=== PATIENT | female | born 1995 | race Caucasian/White ===

== ENCOUNTER 2018-09-24 17:57 | Emergency (ER) | payer MEDICAID ==
[~2018-09-24] VITALS: Ht 162.6 cm; Wt 82.6 kg
[2018-09-24 18:08] VITALS: Ht 162.6 cm; Wt 82.6 kg
[2018-09-24 20:16] LABS: BASOPHIL % 0 % (0-2); PLATELET COUNT 288 x10^3mcL (130-400); RED CELL DISTRIBUTION WIDTH 12.6 % (11.5-14.5)
[2018-09-24 22:07] VITALS: BP 104/57
== END 2018-09-24 22:07 | disposition home or self-care (01) ==
LOC: ED 17:57
PROVIDERS: Emergency Medicine
DX: O20.0 Threatened abortion (principal)
CPT/HCPCS: 36415

== ENCOUNTER 2018-09-27 15:41 | Emergency (ER) | payer MEDICAID ==
[~2018-09-27] VITALS: Ht 162.6 cm; Wt 82.7 kg
[2018-09-27 16:04] VITALS: BP 115/77
== END 2018-09-27 18:10 | disposition home or self-care (01) ==
LOC: ED 15:41
DX: O26.891 Other specified pregnancy related conditions, first trimester (principal); R10.9 Unspecified abdominal pain; M54.6 Pain in thoracic spine; Z3A.01 Less than 8 weeks gestation of pregnancy